=== PATIENT | female | born 1970 | race Two or more races ===

== ENCOUNTER 2024-10-18 10:57 | Emergency (ER) | payer BC ==
[2024-10-18 11:07] VITALS: BMI 23.4
[2024-10-18] MEDS ORDERED: FAMOTIDINE 20 MG/50 ML IVPB 20 MG/50 ML MG IVPB ONE (11:53)
[2024-10-18] MEDS ORDERED: PANTOPRAZOLE SODIUM 40 MG VIAL ONE (12:27)
[2024-10-18] MEDS ORDERED: ACETAMINOPHEN INJECTION 100 ML ONE (12:27)
[2024-10-18] MEDS ORDERED: MAG HYDROX/AL HYDROX/SIMETH 30 ML UNIT-DOSE CUP ONE (12:27)
[2024-10-18] MEDS ORDERED: MECLIZINE HCL 25 MG TABLET (FP) ONE (12:27)
[2024-10-18 12:31] LABS: *STOOL FOR OCCULT BLOOD NEGATIVE (NEGATIVE)
[2024-10-18 12:32] LABS: ABSOLUTE IMMATURE GRANULOCYTES 0.01 x10^3/uL (0.0-0.031); BASOPHILS # 0.03 x10^3/uL (0.01-0.08); EOSINOPHIL % 1.4 % (0.7-5.8); EOSINOPHILS # 0.06 x10^3/uL (0.04-0.36); MCHC 31.3 g/dl (32.2-35.5); MEAN CELL VOLUME 87.3 fl (79.4-94.8); MEAN PLT VOLUME 10.7 fl (9.4-12.3); MONOCYTE # 0.43 x10^3/uL (0.24-0.86); MONOCYTE % 10.3 % (4.7-12.5); RDW 13.7 % (12.3-16.6)
[2024-10-18 12:33] LABS: EPI CELLS 31 /uL (0-25.1); HYALINE CASTS 0 /uL (0-3.1); URINE APPEARANCE CLEAR; URINE BACTERIA 264 /uL (0-1359); URINE BILIRUBIN NEGATIVE (NEGATIVE); URINE COLOR YELLOW; URINE GLUCOSE (UA) NEGATIVE (NEGATIVE); URINE KETONE NEGATIVE (NEGATIVE); URINE LEUK ESTERASE 2+ (NEGATIVE); URINE NITRITE NEGATIVE (NEGATIVE); URINE PROTEIN NEGATIVE (NEGATIVE); URINE RBC 12 /uL (0-23.9); URINE UROBILINOGEN 0.2 mg/dL (0.2-1.0); URINE WBC 42 /uL (0-25.8)
[2024-10-18] MEDS: MAG HYDROX/AL HYDROX/SIMETH -MYLANTA- ORAL SUSPENSION PO ONE (12:37)
[2024-10-18] MEDS: PANTOPRAZOLE SODIUM 40 MG VIAL IVPUSH ONE (12:37)
[2024-10-18] MEDS: MECLIZINE HCL 25 MG TABLET (FP) PO ONE (12:38)
[2024-10-18] MEDS: ACETAMINOPHEN 1000 MG/100 ML BAG IVPB ONE (12:38)
[2024-10-18] MEDS: SODIUM CHLORIDE 0.9% 500 ML INFUS.BAG IV ONE (12:38)
[2024-10-18 12:40] LABS: INR 1.06 (0.83-1.09); PROTHROMBIN TIME (PATIENT) 11.5 SEC (9.7-13.0)
[2024-10-18 12:42] LABS: ACTIVATED PTT 30.5 SECONDS (25.2-36.5)
[2024-10-18 13:17] LABS: GLUCOSE,RANDOM 87.0 mg/dL (74-106)
[2024-10-18 13:18] LABS: TOT PROT 7.8 g/dl (6.4-8.2)
[2024-10-18 13:19] LABS: CO2 24.0 mmol/L (21-32)
[2024-10-18 13:20] LABS: ALK PHOS 98.0 U/L (40-150)
[2024-10-18 13:23] LABS: CREATININE 0.66 mg/dL (0.55-1.3); SGOT/AST 34.0 U/L (5-34); SGPT/ALT 25.0 U/L (0-55)
[2024-10-18 15:40] VITALS: PULSE 57
[2024-10-18] MEDS ORDERED: CEFTRIAXONE 1 GM/50 ML BAG ONE (16:19)
[2024-10-18] MEDS ORDERED: MAGNESIUM SULFATE IN WATER 2 GM/50 ML IVPB IVPB ONE (16:19)
[2024-10-18] MEDS: MAGNESIUM SULFATE IN WATER 2 GM/50 ML IVPB IVPB ONE (16:40)
[2024-10-18] MEDS: CEFTRIAXONE 1,000 MG in DEXTROSE 5%-WATER - 50 ML IVPB ONE (16:41)
[2024-10-18 16:45] VITALS: BP 111/72; RESP 22; TEMP 97.3
== END 2024-10-18 17:33 | disposition home or self-care (01) ==
LOC: JER 10:57
PROC: 3E033GC Introduction of Other Therapeutic Substance into Peripheral Vein, Percutaneous Approach (ICD-10-PCS; principal; 2024-10-18)
PROC: 3E03329 Introduction of Other Anti-infective into Peripheral Vein, Percutaneous Approach (ICD-10-PCS; 2024-10-18)
PROC: 3E033NZ Introduction of Analgesics, Hypnotics, Sedatives into Peripheral Vein, Percutaneous Approach (ICD-10-PCS; 2024-10-18)
PROC: 3E033GC Introduction of Other Therapeutic Substance into Peripheral Vein, Percutaneous Approach (ICD-10-PCS; 2024-10-18)
DX: N39.0 Urinary tract infection, site not specified (principal); R42 Dizziness and giddiness; R10.11 Right upper quadrant pain; R10.13 Epigastric pain; R68.83 Chills (without fever); K64.4 Residual hemorrhoidal skin tags
CPT/HCPCS: 36415; 70450-TC; 71045-TC-FY; 74177-TC; 80053; 81003; 82272; 83605; 83690; 83735; 84484; 85025; 85610; 85730; 86850; 86900; 86901; 87086; 93005; 93010; 99285-25